=== PATIENT | female | born 1995 ===

== ENCOUNTER 2018-01-23 17:52 | Emergency (ER) | payer BC ==
--- NOTE | 2018-01-23 18:16 | EDPHY ---
H & P Stated Complaint: 1 MONTH IRREGULAR HR AND PALPITATIONS Time Seen by Provider: 01/23/18 18:06 HPI/ROS: CHIEF COMPLAINT: Palpitations, chest pain HISTORY OF PRESENT ILLNESS: 22-year-old female via private vehicle complaining of 2 months of intermittent palpitations occur primarily in the evening. She has never had this evaluated. Presents to the ER today because this morning she experienced similar symptoms after eating with associated nausea, lightheadedness, chest pain. This feels slightly different than her usual presentation. Currently experiencing nausea and feeling lightheaded as well. She denies: Cigarette use, illicit drug use, cocaine use, family history of premature coronary artery disease, coagulopathic disorder history either personally or family history, exogenous estrogen use. PRIMARY CARE PROVIDER: Dr. Alfonso Nolan REVIEW OF SYSTEMS: 10 systems reviewed and negative with the exception of the elements mentioned in the history of present illness PAST MEDICAL & SURGICAL HISTORY: No pertinent medical or surgical history . No coagulopathic disorder . SOCIAL HISTORY: Nonsmoker. No drug use. 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 Appears anxious. 2) HEAD: Normocephalic, atraumatic 3) HEENT: Pupils equal, round, reactive to light bilaterally. Sclera anicteric. Nasopharynx, oropharynx, clear, no lesions. Moist Mucous membranes. 4) NECK: Full range of motion, no meningeal signs. No carotid bruit 5) LUNGS: Clear auscultation bilaterally, no wheezes, no rhonchi, no retractions. 6) HEART: Regular rate and rhythm, no murmur, no heave, no gallop. 7) ABDOMEN: No guarding, no rebound, no focal tenderness, negative McBurney's, negative Verduzco's, negative Rovsing's, negative peritoneal sign, 8) MUSCULOSKELETAL: Moving all extremities, no focal areas of tenderness, no obvious trauma. No peripheral edema or discoloration. Negative Homans no palpable cord. 9) BACK: No CVA tenderness, no midline vertebral tenderness, no fluctuance, no step-off, no obvious trauma, no visual or palpable abnormality. 10) SKIN: No rash, no petechiae. 11) Psychiatric: Patient is oriented X 3, there is no agitation. DIFFERENTIAL DIAGNOSIS: In no particular order, including but not limited to myocardial ischemia, cardiac dysrhythmia, pulmonary embolus, chest wall pain, pleural inflammation and pulmonary infectious causes. - Personal History LMP (Females 10-55): 22-28 Days Ago Current Tetanus Diphtheria and Acellular Pertussis (TDAP): Yes - Medical/Surgical History Hx Asthma: No Hx Chronic Respiratory Disease: No Hx Diabetes: No Hx Cardiac Disease: No Hx Renal Disease: No Hx Cirrhosis: No Hx Alcoholism: No Hx HIV/AIDS: No Hx Splenectomy or Spleen Trauma: No Other PMH: DENIES - Social History Smoking Status: Never smoked Constitutional: Initial Vital Signs Temperature (C) 37.1 C 01/23/18 18:02 Heart Rate 122 H 01/23/18 18:02 Respiratory Rate 18 01/23/18 18:02 Blood Pressure 145/97 H 01/23/18 18:02 O2 Sat (%) 94 01/23/18 18:02 O2 Delivery Mode Room Air Allergies/Adverse Reactions: No Known Allergies Allergy (Unverified 01/23/18 18:02) Home Medications: Medication Instructions Recorded NK [No Known Home Meds] 01/23/18 Medical Decision Making - Diagnostics Imaging Results: Imaging Impressions Chest X-Ray 01/23/18 18:13 IMPRESSION: Normal chest x-ray. Images reviewed myself ED Course/Re-evaluation: 6:10 p.m.: Patient evaluated myself, she is tachycardic, vomit complaining of chest pain lightheadedness. She has a non negative perc score. Will obtain laboratory studies including D-dimer, administer IV fluids and re-evaluate 6:50 p.m.: Re-evaluation, negative D-dimer which I think adequately excludes pulmonary embolus in this patient whom I have a moderate pretest suspicion for pulmonary embolus. 0 point Heart pathway score. Doubt IL. - Data Points Laboratory Results: Laboratory Results 01/23/18 18:15 01/23/18 18:15 01/23/18 01/23/18 01/23/18 18:18 18:15 18:15 WBC RBC Hgb Hct MCV MCH MCHC RDW Plt Count MPV Neut % (Auto) Lymph % (Auto) Dickens % (Auto) Eos % (Auto) Baso % (Auto) Nucleat RBC Rel Count Absolute Neuts (auto) Absolute Lymphs (auto) Absolute Monos (auto) Absolute Eos (auto) Absolute Basos (auto) Absolute Nucleated RBC Immature Gran % Immature Gran # D-Dimer 0.34 ug/mLFEU ug/mLFEU (0.00-0.50) Sodium Potassium Chloride Carbon Dioxide Anion Gap BUN Creatinine Estimated GFR Glucose Calcium POC Troponin I 0.00 ng/mL ng/mL (0.00-0.08) Beta HCG, Qual NEGATIVE 01/23/18 01/23/18 18:15 18:15 WBC 9.08 10^3/uL 10^3/uL (3.80-9.50) RBC 4.77 10^6/uL 10^6/uL (4.18-5.33) Hgb 14.3 g/dL g/dL (12.6-16.3) Hct 40.3 % % (38.0-47.0) MCV 84.5 fL fL (81.5-99.8) MCH 30.0 pg pg (27.9-34.1) MCHC 35.5 g/dL g/dL (32.4-36.7) RDW 12.0 % % (11.5-15.2) Plt Count 327 10^3/uL 10^3/uL (150-400) MPV 9.3 fL fL (8.7-11.7) Neut % (Auto) 57.1 % % (39.3-74.2) Lymph % (Auto) 34.1 % % (15.0-45.0) Dickens % (Auto) 6.8 % % (4.5-13.0) Eos % (Auto) 1.2 % % (0.6-7.6) Baso % (Auto) 0.7 % % (0.3-1.7) Nucleat RBC Rel Count 0.0 % % (0.0-0.2) Absolute Neuts (auto) 5.18 10^3/uL 10^3/uL (1.70-6.50) Absolute Lymphs (auto) 3.10 10^3/uL H 10^3/uL (1.00-3.00) Absolute Monos (auto) 0.62 10^3/uL 10^3/uL (0.30-0.80) Absolute Eos (auto) 0.11 10^3/uL 10^3/uL (0.03-0.40) Absolute Basos (auto) 0.06 10^3/uL 10^3/uL (0.02-0.10) Absolute Nucleated RBC 0.00 10^3/uL 10^3/uL (0-0.01) Immature Gran % 0.1 % % (0.0-1.1) Immature Gran # 0.01 10^3/uL 10^3/uL (0.00-0.10) D-Dimer Sodium 140 mEq/L mEq/L (135-145) Potassium 3.4 mEq/L mEq/L (3.3-5.0) Chloride 103 mEq/L mEq/L (97-110) Carbon Dioxide 25 mEq/l mEq/l (22-31) Anion Gap 12 mEq/L mEq/L (8-16) BUN 16 mg/dL mg/dL (7-23) Creatinine 0.8 mg/dL mg/dL (0.6-1.0) Estimated GFR > 60 Glucose 112 mg/dL H mg/dL (70-100) Calcium 9.4 mg/dL mg/dL (8.5-10.4) POC Troponin I Beta HCG, Qual Medications Given: Discontinued Medications Sodium Chloride (Ns) 1,000 mls @ 0 mls/hr IV ONCE ONE PRN Reason: Wide Open Stop: 01/23/18 18:21 Last Admin: 01/23/18 18:26 Dose: 1,000 mls Point of Care Test Results: Chemistry 01/23/18 18:18 POC Troponin I 0.00 ng/mL ng/mL (0.00-0.08) Departure - Departure Disposition: Home, Routine, Self-Care Clinical Impression: Palpitations Condition: Good Instructions: Heart Palpitations (ED) Additional Instructions: Seek medical attention if you develop chest pain, if you develop new or worsening shortness of breath, or any other symptoms that concern you. Referrals: Alfonso Nolan MD [Primary Care Provider] - 1-2 days without fail Mi Mena MD [Medical Doctor] - 1-2 days without fail (Dr. Mi Mena is a dehorner)
[2018-01-23] MEDS ORDERED: NS 1,000 ML IV ONE (18:20)
[2018-01-23 18:30] LABS: PLATELET COUNT 327 10^3/uL (150-400)
[2018-01-23 19:32] VITALS: BP 125/87
== END 2018-01-23 19:39 | disposition home or self-care (01) ==
DX: R00.2 Palpitations (principal)
CPT/HCPCS: 84484-PO

== ENCOUNTER → 2018-05-07 | Outpatient (CLI) | payer BC | LOC: FIMAGING 08:09 | PROVIDERS: ATTEND Internal Medicine Cardiovascular Disease | DX: R10.9 Unspecified abdominal pain (principal); R07.9 Chest pain, unspecified; I34.0 Nonrheumatic mitral (valve) insufficiency ==